=== PATIENT | male | born 1940 | race Caucasian/White ===

== ENCOUNTER 2017-08-11 15:02 | Emergency (ER) | payer OTHER ==
[~2017-08-11] VITALS: Ht 162.6 cm; Wt 70.3 kg
[2017-08-11 15:06] VITALS: BP_SYST 116
[2017-08-11] MEDS ORDERED: INSULIN REGULAR, HUMAN 10 UNITS/0.1 ML INJ IVP ONE ×2 (15:30→16:15)
[2017-08-11] MEDS ORDERED: NACL 0.9% 1,000 ML IV ONE (15:30)
[2017-08-11 15:41] LABS: BASOPHILS % (AUTO) 0.5 % (0.0-2.0); EOSINOPHILS # (AUTO) 0.1 K/uL (0.0-0.4); EOSINOPHILS % (AUTO) 2.1 % (0.0-4.0); HEMATOCRIT 35.3 % (36-54); HEMOGLOBIN 12.3 g/dL (14.0-18.0); LYMPHOCYTES # (AUTO) 1.9 K/uL (1.0-5.5); LYMPHOCYTES % (AUTO) 27.5 % (20.5-51.5); MEAN CORPUSCULAR HEMOGLOBIN 31 pg (27-31); MEAN CORPUSCULAR HGB CONC 35 % (32-36); MEAN CORPUSCULAR VOLUME 89 fL (79.0-98.0); MONOCYTES # (AUTO) 0.6 K/uL (0.0-1.0); MONOCYTES % (AUTO) 8.9 % (1.7-9.3); NEUTROPHILS # (AUTO) 4.4 K/uL (1.8-7.7); PLATELET COUNT (AUTO) 145 K/uL (130-430); RED BLOOD CELL COUNT(AUTO) 3.99 MIL/uL (4.2-6.2)
[2017-08-11 15:57] LABS: ANION GAP 10 (5-15); CALCIUM 9.6 mg/dL (8.4-11.0); CHLORIDE 94 mmol/L (98-107); CREATININE 2.17 mg/dL (0.55-1.30); POTASSIUM 4.1 mmol/L (3.5-5.1); SODIUM SERUM 129 mmol/L (136-145); UREA NITROGEN, BLOOD 32 mg/dL (8-21)
[2017-08-11 15:58] LABS: ALANINE AMINOTRANSFERASE 76 U/L (12-78); ALBUMIN 4.2 g/dL (3.4-4.8); ASPARTATE AMINOTRANSFERASE 41 U/L (10-37)
[2017-08-11 16:10] LABS: GLUCOSE 683 mg/dL (70-99)
[2017-08-11 16:22] LABS: ACETONE, SERUM NEGATIVE (NEGATIVE)
[2017-08-11 17:51] LABS: BILIRUBIN,URINE NEGATIVE (NEGATIVE); BLOOD, URINE NEGATIVE (NEGATIVE); CLARITY/URINE CLEAR (CLEAR); COLOR,URINE YELLOW (YELLOW); GLUCOSE,URINE 3+ (NEGATIVE); KETONES,URINE NEGATIVE (NEGATIVE); LEUKOCYTE ESTERASE ,URINE NEGATIVE (NEGATIVE); NITRITE, URINE NEGATIVE (NEGATIVE); PROTEIN URINE NEGATIVE (NEGATIVE); UROBILINOGEN,URINE 0.2 (0.2-1.0)
[2017-08-11 18:16] LABS: BACTERIA,URINE FEW /HPF (None Seen); MUCUS,URINE None Seen /LPF (None Seen); RBC,URINE NONE SEEN /HPF (0-3); WBC,URINE 0-3 /HPF (0-3)
[2017-08-11 18:45] VITALS: BP_SYST 118
== END 2017-08-11 18:45 | disposition home or self-care (01) ==
LOC: SED 15:02
DX: E11.65 Type 2 diabetes mellitus with hyperglycemia (principal)
CPT/HCPCS: 36415; 80053; 81000; 82009; 82962; 85025; 96361; 96374; 96376; 99285; J1815; J7030

== ENCOUNTER 2017-09-09 16:07 | Outpatient (CLI) | payer OTHER | END 2017-09-09 21:00 | disposition home or self-care (01) | LOC: SRD 16:07 | PROVIDERS: ATTEND Internal Medicine | DX: J94.8 Other specified pleural conditions (principal); I70.90 Unspecified atherosclerosis | CPT/HCPCS: 71020-TC ==

== ENCOUNTER 2018-09-29 10:38 | Outpatient (CLI) | payer OTHER | END 2018-09-29 19:39 | disposition home or self-care (01) | LOC: SRD 10:38 | PROVIDERS: ATTEND Internal Medicine | DX: Z01.818 Encounter for other preprocedural examination (principal); R05 Cough; I70.8 Atherosclerosis of other arteries | CPT/HCPCS: 71046-TC ==